=== PATIENT | male | born 1995 | race Caucasian/White ===

== ENCOUNTER → 2020-01-09 | Outpatient (CLI) | payer SELFPAY | LOC: ZCOL.LAB 18:53 | DX: U07.1 COVID-19 (principal) ==

== ENCOUNTER 2021-09-12 10:43 | Emergency (ER) | payer OTHER ==
[~2021-09-12] VITALS: Ht 175.3 cm; Wt 66.8 kg
[2021-09-12 11:13] VITALS: BP 103/72; TEMP 98.4
[2021-09-12 12:48] VITALS: PULSE 69
== END 2021-09-12 12:48 | disposition home or self-care (01) ==
LOC: COL.ER 10:43
DX: S40.011A Contusion of right shoulder, initial encounter (principal); Z87.81 Personal history of (healed) traumatic fracture; Z28.310 Unvaccinated for COVID-19; W03.XXXA Other fall on same level due to collision with another person, initial encounter; Y93.66 Activity, soccer